=== PATIENT | female | born 1960 | race Caucasian/White ===

== ENCOUNTER 2019-05-30 07:53 | Emergency (ER) | payer OTHER ==
[2019-05-30 08:07] VITALS: BP 147/81
--- NOTE | 2019-05-30 08:39 | UC ---
Cardiac HPI - HPI Summary HPI Summary: 59-year-old female comes in with chief complaint of right chest pain. 4 days ago she slipped and fell and struck her right lower anterior ribs. She had pain at that time the pains getting worse. Pain is worse with deep inspiration and also laying on that side and palpation. She did take some naproxen which helped decrease the pain. Does not feel short of breath. No rash no fevers no chest congestion. No abdominal pain eating and drinking normally. No change in bowel or bladder. - History of Current Complaint Chief Complaint: UCUpperExtremity Stated Complaint: RT RIB PAIN Time Seen by Provider: 05/30/19 08:19 Pain Intensity: 2 - Allergy/Home Medications Allergies/Adverse Reactions: Allergies Allergy/AdvReac Type Severity Reaction Status Date / Time No Known Allergies Allergy Verified 05/30/19 08:07 Home Medications: Home Medications Naproxen Sodium [Naproxen 220 mg] 220 mg PO ONCE 05/30/19 [History Confirmed 02/13] PMH/Surg Hx/FS Hx/Imm Hx Previously Healthy: Yes - Surgical History Surgical History: Yes Surgery Procedure, Year, and Place: c-sections. has an implanted port. BIOPSIES - Family History Known Family History: Positive: Non-Contributory - Social History Alcohol Use: Occasionally Substance Use Type: None Smoking Status (MU): Never Smoked Tobacco Review of Systems All Other Systems Reviewed And Are Negative: Yes Constitutional: Positive: Negative Skin: Positive: Negative Eyes: Positive: Negative ENT: Positive: Negative Respiratory: Positive: Negative Cardiovascular: Positive: Chest Pain Gastrointestinal: Positive: Negative Motor: Positive: Negative Neurovascular: Positive: Negative Musculoskeletal: Positive: Negative Neurological: Positive: Negative Psychological: Positive: Negative Is Patient Immunocompromised?: No Physical Exam Triage Information Reviewed: Yes Appearance: Well-Appearing, No Pain Distress, Well-Nourished Vital Signs: Initial Vital Signs Temp 98.8 F 05/30/19 08:03 Pulse 79 05/30/19 08:03 Resp 18 05/30/19 08:03 BP 147/81 05/30/19 08:03 Pulse Ox 99 05/30/19 08:03 Vital Signs Reviewed: Yes Eye Exam: Normal Eyes: Positive: Conjunctiva Clear Neck: Positive: Supple, Nontender Respiratory: Positive: Lungs clear, Normal breath sounds, No respiratory distress, Other: - Patient is tender to palpation right lower lateral anterior ribs. There is no rash. No ecchymosis. Abdomen is soft and nontender. Cardiovascular: Positive: RRR Abdomen Description: Positive: Nontender, Soft. Negative: CVA Tenderness (R), CVA Tenderness (L) Musculoskeletal Exam: Normal Musculoskeletal: Positive: Strength Intact, ROM Intact Neurological: Positive: Alert, Muscle Tone Normal Psychological Exam: Normal Psychological: Positive: Age Appropriate Behavior Skin Exam: Normal Skin: Negative: Rashes - Assessment/Plan Course Of Treatment: Patient Name: FOZIA EPPS Medical Record#: [id number] Ordering Physician: Salvatore Dixon MD Acct.#: [id number] : 1960 Age: 59 Sex: F Location: [facility] Exam Date: 05/30/19822 ADM Status: REG ER Order Information: RIBS RT UNI W/PA CH MIN 3 VWS Accession Number: [id number] CPT: 32699 INDICATION: Right rib injury. COMPARISON: Comparison is made with a prior study from January 08, 2011. TECHNIQUE: 5 views of the right ribs and dual-energy PA views of the chest were obtained. FINDINGS: No fracture or significant focal osseous abnormality is seen. The heart is within normal limits in size. There is elevation of the left hemidiaphragm and a small infiltrate at the left lung base and findings suggestive of a trace pleural effusion. No pneumothorax is seen. IMPRESSION: 1. NO FRACTURE IS SEEN. 2. SMALL LEFT BASILAR INFILTRATE AND FINDINGS SUGGESTIVE OF A TRACE PLEURAL EFFUSION. <Electronically signed by Stevie Thomas MD in OV> 05/30/19 0856 I discussed the x-rays with the patient. No fracture seen in the right side of the chest is completely normal. There is the findings of left sided small basilar infiltrate and suggesting a trace pleural effusion. Patient does not have any pain on the left side. Right now the plan is patient's going home from the clinic with an incentive spirometer to be used to avoid respiratory infections and she is given a continue taking naproxen and then add acetaminophen if needed. She follow-up with primary care physician for follow- up of the rib pain but also to discuss the chest x-ray findings of possible trace pleural effusion to determine if any further workup or imaging is required. Patient's to follow-up sooner if she gets worse or any questions or concerns. - Clinical Impression Provider Diagnosis: Right-sided chest pain, Pleural effusion, left, Left pulmonary infiltrate on CXR Discharge - Sign-Out/Discharge Documenting (check all that apply): Patient Departure All imaging exams completed and their final reports reviewed: Yes - Discharge Plan Condition: Stable Disposition: HOME Patient Education Materials: Rib Contusion (ED), Chest Pain (ED), Pleural Effusion (ED) Referrals: Catrina Pepper MD [Primary Care Provider] - Additional Instructions: FOLLOW UP WITH YOUR DOCTOR FOR YOUR RIGHT SIDED CHEST PAIN AND FOR THE CHEST X- RAY FINDINGS OF LEFT SIDED PLEURAL EFFUSION AND INFILTRATE. GET RECHECKED SOONER IF YOUR CONDITION WORSENS OR ANY QUESTIONS OR CONCERNS. USE THE INCENTIVE SPIROMETER EVERY 4 HOURS OR MORE FREQUENTLY TO HELP AVOID A RESPIRATORY INFECTION. - Billing Disposition and Condition Condition: STABLE Disposition: Home
== END 2019-05-30 09:26 | disposition home or self-care (01) ==
LOC: UCEAST 07:53
DX: R07.89 Other chest pain (principal); J90 Pleural effusion, not elsewhere classified; R91.8 Other nonspecific abnormal finding of lung field
CPT/HCPCS: 99201; G0463

== ENCOUNTER 2024-12-02 10:23 | Observation (INO) ==
[2024-12-02 10:51] LABS: ABS Basophils 0.1 10^3/uL (0.0-0.1); ABS Lymphocytes 1.3 10^3/uL (1.0-4.8); ABS Monocytes 0.9 10^3/uL (0.0-0.9); ABS Neutrophils 12.7 10^3/uL (1.5-7.6); Eosinophil % 0.1 %; Hematocrit 39.8 % (35-45); Hemoglobin 13.6 g/dL (11.5-14.3); Lymphocyte % 8.5 %; Mean Corpuscular Hemoglobin 30.8 pg (27-33); Mean Corpuscular Hgb Conc 34.1 g/dL (31-36); Mean Corpuscular Volume 90.4 fL (80-97); Mean Platelet Volume 8.9 fL (7.5-11.2); Platelet Count 334 10^3/uL (150-450); Red Cell Distribution Width 13.5 % (12-17)
[2024-12-02 11:05] LABS: INR 1.21 (0.85-1.14)
[2024-12-02 11:41] LABS: Albumin 4.3 g/dL (3.5-5.7); Albumin/Globulin Ratio 1.9 (1-3); Calcium 10.1 mg/dL (8.6-10.3); Creatinine, Serum 0.88 mg/dL (0.51-0.95); Globulin 2.3 g/dL (2-4); Potassium 4.6 mmol/L (3.5-5.0); Total Bilirubin 0.8 mg/dL (0.2-1.0); Total Protein 6.6 g/dL (6.4-8.9); eGFR CKD-EPI 73.3 (>60)
[2024-12-02 12:25] LABS: High Sensitivity Troponin 1 Hr 4 pg/mL (<15)
[2024-12-02] MEDS: Pantoprazole 80 mg in NS BAG 80 MG/250 ML BAG IV ONE (14:46)
[2024-12-02] MEDS: Iohexol 300 (CONTRAST) 10 ML SDV IV ONE (15:20)
[2024-12-02] MEDS: Lactated Ringers 1000 ml BAG 1,000 ML IV ONE (16:10)
[2024-12-02] MEDS: Ondansetron 4 mg VIAL 2 MG/ML 2 ml VIAL IV ONE (17:17)
[2024-12-02] MEDS: NS 0.9% 1000 ml BAG 1,000 ML IV SCH (18:29)
[2024-12-02] MEDS: HYDROmorphone 1 MG/1 ML SYRINGE IV SLOW PU PRN (18:49)
[2024-12-02] MEDS: Piperacillin/Tazobac 3.375 BAG 3.375 GM/100 ML BAG IV SCH (21:46)
[2024-12-02] MEDS ORDERED: Piperacillin/Tazobac 3.375 BAG 3.375 GM/100 ML BAG IV SCH (22:00)
[2024-12-02] MEDS ORDERED: ZOSYN 3.375 GM x ONE DOSE over 30 miuntes IV (22:00)
[2024-12-03] MEDS: Ondansetron 4 mg VIAL 2 MG/ML 2 ml VIAL IV PRN (00:49)
[2024-12-03 06:50] LABS: ABS Basophils 0.1 10^3/uL (0.0-0.1); ABS Lymphocytes 1.2 10^3/uL (1.0-4.8); ABS Monocytes 1.2 10^3/uL (0.0-0.9); Eosinophil % 0.1 %; Hematocrit 35.7 % (35-45); Hemoglobin 11.8 g/dL (11.5-14.3); Lymphocyte % 9.9 %; Mean Corpuscular Hemoglobin 30.1 pg (27-33); Mean Corpuscular Volume 91.1 fL (80-97); Mean Platelet Volume 9.2 fL (7.5-11.2); Platelet Count 282 10^3/uL (150-450); Red Blood Count 3.92 10^6/uL (3.63-4.92); Red Cell Distribution Width 13.4 % (12-17); White Blood Count 12.6 10^3/uL (3.8-11.8)
[2024-12-03 07:06] LABS: Albumin 3.6 g/dL (3.5-5.7); Albumin/Globulin Ratio 1.8 (1-3); Calcium 8.7 mg/dL (8.6-10.3); Creatinine, Serum 0.81 mg/dL (0.51-0.95); Potassium 4.5 mmol/L (3.5-5.0); Total Bilirubin 0.9 mg/dL (0.2-1.0); Total Protein 5.6 g/dL (6.4-8.9)
[2024-12-03] MEDS ORDERED: Midazolam 2 mg/2 ml VIAL 1 mg/ml 2 ml VIAL (2 mg) ONE ×2 (08:36→15:38)
[2024-12-03] MEDS ORDERED: fentaNYL 100 mcg/2 ml 50 MCG/ML VIAL ONE ×2 (08:36→15:38)
[2024-12-03] MEDS ORDERED: Lidocaine 2% PF 5 ML VIAL ONE ×2 (08:36→15:38)
[2024-12-03] MEDS ORDERED: Propofol 10 MG/ML 20 ML BTL ONE ×2 (08:36→15:38)
[2024-12-03] MEDS ORDERED: Rocuronium 50 mg VIAL 10 mg/ml 5 ml VIAL (50 mg) ONE ×2 (08:36→15:37)
[2024-12-03] MEDS ORDERED: Bupivacaine 0.25% EPI 200,000 30 ML SDV ONE (15:33)
[2024-12-03] MEDS ORDERED: Dexamethasone IV 4 MG/ML VIAL 1 ml VIAL ONE (15:39)
[2024-12-03] MEDS ORDERED: Ondansetron 4 mg VIAL 2 MG/ML 2 ml VIAL ONE (15:39)
[2024-12-03] MEDS ORDERED: Albumin Human 5% 12.5 GM/250 ML BTL IV ONE (16:25)
[2024-12-03] MEDS ORDERED: Phenylephrine IV 10 MG/ML 1 ml VIAL ONE (16:32)
[2024-12-03] MEDS ORDERED: Acetaminophen IV 1 GM/100ML 1,000 MG/100 ML BAG IV ONE (17:05)
[2024-12-03] MEDS ORDERED: Naloxone 0.4 mg VIAL 0.4 mg/ml 1 ml VIAL IV PRN (17:43)
[2024-12-03] MEDS ORDERED: Ondansetron 4 mg VIAL 2 MG/ML 2 ml VIAL IV PRN (17:43)
[2024-12-03] MEDS ORDERED: fentaNYL 100 mcg/2 ml 50 MCG/ML VIAL IV PRN (17:43)
[2024-12-03] MEDS ORDERED: HYDROmorphone 1 MG/1 ML SYRINGE IV PRN (17:43)
[2024-12-03] MEDS: oxyCODONE/Acetamin 5/325 mg TAB PO PRN (22:39)
[2024-12-04] MEDS: Metoclopramide 5 MG/ML VIAL (10 mg) IV SLOW PU ONE (07:22)
[2024-12-04 10:38] VITALS: BP 114/58
== END 2024-12-04 11:40 | disposition home or self-care (01) ==
LOC: ED 10:23 → EDHOLD 10:23 → MED 19:44
PROVIDERS: ADMIT Surgery; ATTEND Surgery